=== PATIENT | female | born 1960 | race Caucasian/White ===

== ENCOUNTER 2019-02-19 11:22 | Inpatient (IN) | payer OTHER ==
[~2019-02-19] VITALS: Ht 157.5 cm; Wt 77.9 kg
[2019-02-19 12:11] LABS: Basophils # (auto) 0.1 uL; Basophils % (auto) 0.8 % (0.0-2.0); Eosinophils # (auto) 0.1 uL; Hematocrit 40.6 % (36.0-46.0); Hemoglobin 13.9 g/dL (12.2-16.2); Lymphocytes # (auto) 1.3 uL; Lymphocytes % (auto) 16.9 % (10.0-50.0); Mean Corpuscular Hemoglobin 29.8 pg (28.0-32.0); Mean Corpuscular Hgb Conc. 34.3 g/dL (32.0-36.0); Mean Corpuscular Volume 86.7 fL (80.0-100.0); Monocytes # (auto) 0.5 uL; Monocytes % (auto) 6.1 % (0.0-12.0); Neutrophils % (auto) 75.2 % (37.0-80.0); Platelet Count (auto) 144 10^3/uL (140-450); Red Blood Cells 4.68 10^6/uL (4.0-5.20); Red Cell Distribution Width 14.3 % (11.8-14.3)
[2019-02-19 12:41] LABS: Albumin 3.9 g/dL (3.4-5.0); BUN/Creatinine Ratio 24.2; Calcium 8.5 mg/dL (8.5-10.1); Potassium 3.8 mmol/L (3.5-5.1)
[2019-02-19 12:46] LABS: Bilirubin, Total 0.3 mg/dL (0.2-1.0); Total Protein 6.8 g/dL (6.4-8.2)
[2019-02-19 13:20] LABS: INR 0.97 (0.9-1.15); Partial Thromboplastin Time 26.7 sec (23.64-32.05)
[2019-02-19] MEDS ORDERED: NITROGLYCERIN 0.4 MG SL TAB SL PRN (14:30)
[2019-02-19] MEDS ORDERED: hydrALAZINE HCL 20 MG/ML VL IV PRN (14:30)
[2019-02-19] MEDS ORDERED: NITROGLYCERIN 0.4MG/HR TOPICAL PATCH TD ONE (14:30)
[2019-02-19] MEDS ORDERED: HYDROcodone-ACET 5/325MG TAB PO PRN (14:30)
[2019-02-19] MEDS ORDERED: ONDANSETRON HCL 4 MG/2 ML VIAL IV PRN (14:30)
[2019-02-19] MEDS ORDERED: ACETAMINOPHEN 500 MG TAB PO PRN (14:30)
--- NOTE | 2019-02-19 15:53 | NUR ---
Telemetry admit from ER ROBBIE GOETZ admitted to Telemetry unit after SBAR received. Patient oriented to SARAH LEWIS RN primary RN, unit, room, bed, and unit policies regarding patient care and visiting hours. Patient now on continuous telemetry monitoring, tele box # [id number] and telemetry reading on arrival to unit is sinus sae [id number]. Patient denies any chest pain or SOB at this time. Patient weighed by bedscale and encouraged to call if they need something. All questions and concerns addressed, patient verbalized understanding.
--- NOTE | 2019-02-19 16:07 | NUR ---
Paged Ramon Carranza Paged Ramon to inform him of critical troponin level 2.51. New orders in place. Paged Dr Prather as well per Tere's request.
--- NOTE | 2019-02-19 16:12 | NUR ---
MED REQ PATIENT TAKES HOMEOPATHIC DOSES OF PROGESTERONE, TESTOSTERONE AND ESTROGEN.
[2019-02-19] MEDS ORDERED: ENOXAPARIN SOD 80 MG/0.8ML SYRINGE SC ONE (16:15)
--- NOTE | 2019-02-19 16:30 | NUR ---
12 Lead EKG 12 Lead EKG performed and strips placed in chart per Tere's request. Ramon stated he will be up to read the strips. Verbalized understanding.
[2019-02-19 17:12] VITALS: BP 97/58
--- NOTE | 2019-02-19 18:03 | NUR ---
House Sup Aware of Transfer supervisor engines road and charge nurse made aware of transfer order to [facility]. states we have no beds available at this time. Will continue to monitor and wait for bed opening.
--- NOTE | 2019-02-19 19:19 | NUR ---
Closing Note Patient sitting up in bed, shows no signs of distress at this time. Bed in lowest locked position, side rails up x2 and call light within reach. Endorsed care to [facility] nurse Alanis.
--- NOTE | 2019-02-19 20:00 | NUR ---
RECEIVE IN BED WITH FAMILY AT BED SIDE DENIES ANY CHEST PAIN OR SOB IS AWARE HAT SHE WILL BE TRANSFERRED TO [facility] WHEN BED IS AVAILABLE.
[2019-02-19] MEDS: DOCUSATE SOD 100 MG CAP PO SCH (21:50)
[2019-02-19] MEDS: METOPROLOL TARTRATE 25 MG TAB PO SCH (21:50)
[2019-02-19] MEDS ORDERED: ATORVASTATIN 20 MG TAB PO SCH (22:00)
--- NOTE | 2019-02-19 22:00 | NUR ---
TROPONIN IS 7.04 CHIEF SPECIALIST LEED AND CHARGE NURSE IS AWAREPT S AWARE OF SAME DENIES ANY CHEST PAIN INSTRUCTED THAT SHE WILL BE NPO FOR HEART CATH AND IS AWAITING [facility] BED
[2019-02-19 22:01] VITALS: BP 101/53
[2019-02-19] MEDS ORDERED: ASPirin 81 mg TAB PO ONE (23:00)
[2019-02-20] VITALS (13 sets, daily range): BP systolic 85–123; BP diastolic 40–71
--- NOTE | 2019-02-20 | NUR ---
ISBEING MONITORED [facility] PT IS AWARE OF SAME BP 92/48 P 56 R 18 O2 SAT 96% RA NO DISTRESS
--- NOTE | 2019-02-20 05:04 | NUR ---
NPO MAINTAINED IS BEING MONITORED [facility] PT NO VOICED COMPLAINTS
[2019-02-20 05:25] LABS: Calcium 8.4 mg/dL (8.5-10.1); Potassium 3.8 mmol/L (3.5-5.1)
[2019-02-20 05:38] LABS: INR 0.98 (0.9-1.15); Partial Thromboplastin Time 30.2 sec (23.64-32.05)
--- NOTE | 2019-02-20 06:40 | NUR ---
HR 58 NPO MAINTAINED IS AWAITING HEART CATH AND FAMILY
--- NOTE | 2019-02-20 08:00 | NUR ---
OPENING NOTE Assumed care of patient, awake and alert. No S/S of distress/SOB or pain. Instructed on POC and to call for assist PRN, will continue to monitor for changes Q1hr and PRN.
--- NOTE | 2019-02-20 08:30 | NUR ---
Patient taken to [facility] laborer.
[2019-02-20] MEDS: LISINOPRIL 10 MG TAB PO SCH (10:00)
[2019-02-20] MEDS: NITROGLYCERIN 0.4MG/HR TOPICAL PATCH TD SCH (10:00)
[2019-02-20] MEDS: METOPROLOL TARTRATE 25 MG TAB PO SCH ×2 (10:00→21:44)
[2019-02-20] MEDS ORDERED: ASPirin 81 mg TAB PO SCH (10:00)
[2019-02-20] MEDS ORDERED: LIDOCAINE 2%HCL (LOCAL ANESTH.) INJ 20ML MDV ONE (10:18)
[2019-02-20] MEDS ORDERED: IOHEXOL 350 MG/ML 100ML IJ ONE ×2 (10:18→10:25)
[2019-02-20] MEDS ORDERED: fentaNYL CITRATE 100 MCG/2 ML VL ONE (10:24)
[2019-02-20] MEDS ORDERED: MIDAZOLAM HCL 1MG/1ML-2 ML VIAL ONE (10:24)
[2019-02-20] MEDS ORDERED: ANGIOMAX 250 MG VIAL IV ONE (10:24)
[2019-02-20] MEDS ORDERED: SODIUM CHL 0.9% 0 ML ONE (10:25)
[2019-02-20] MEDS ORDERED: VERAPAMIL 2.5MG/ML INJ 2ML VIAL IV ONE (10:27)
[2019-02-20] MEDS ORDERED: HEPARIN SODIUM (PORCINE) 5000 UNITS/ML 1ML VIAL ONE (11:08)
[2019-02-20 12:08] LABS: Cholesterol 158 mg/dL (< 200); HDL Cholesterol 43 mg/dL (40-59); LDL Cholesterol 102 mg/dL (< 100); Triglycerides 107 mg/dL (< 150)
--- NOTE | 2019-02-20 12:40 | NUR ---
Received pt back from laboratory supervisor, pt has a vacular band to rt wrist, removed 2 ml of air, no bleeding noticed, v/s 123/71, hr 59, O2 sat 99% at RA, no pain or distress noted or reported, will continue to monitor pt.
[2019-02-20] MEDS: DOCUSATE SOD 100 MG CAP PO SCH ×2 (12:49→21:44)
[2019-02-20] MEDS: ASPirin 81 mg TAB PO SCH (12:49)
--- NOTE | 2019-02-20 13:10 | NUR ---
Removed 2 ml of air of vascular band to rt wrist, no bleeding noticed, will continue to monitor pt.
--- NOTE | 2019-02-20 13:40 | NUR ---
Removed 2 ml of air of vascular band to rt wrist, no bleeding noticed, will continue to monitor pt.
[2019-02-20 13:53] LABS: Urine Bacteria NONE SEEN /hpf (None Seen); Urine Blood Negative /uL (Negative); Urine Specific Gravity 1.035 (1.001-1.035); Urine WBC <1 /hpf (0 - 5)
--- NOTE | 2019-02-20 14:10 | NUR ---
Removed 2 ml of air of vascular band to rt wrist, no bleeding noticed, will continue to monitor pt.
--- NOTE | 2019-02-20 14:40 | NUR ---
Removed 2 ml of air of vascular band to rt wrist, no bleeding noticed, v/s 98/60, hr 60, O2 sat 96%, will continue to monitor pt.
--- NOTE | 2019-02-20 15:40 | NUR ---
No bleeding noticed at rt wrist, no swelling or hematoma noticed, applied gauze and clear opsite dressing, will continue to monitor pt for bleeding.
--- NOTE | 2019-02-20 19:45 | NUR ---
Opening Shift Note Assumed care of patient, awake, alert and oriented x 4. No S/S of distress/SOB or pain. On room air and ambulatory. Bed in lowest locked position, side rails up x 2, call light within reach. Instructed on POC and to call for assist PRN, will continue to monitor for changes Q1hr and PRN.
--- NOTE | 2019-02-20 19:50 | NUR ---
INCISION SITE TO RIGHT WRIST NO SIGNS OF PAIN, BLEEDING OR HEMATOMA NOTED. NO C/O NUMBNESS FROM PROCEDURE. GAUZE AND TEGADERM DRESSING CDI.
[2019-02-20] MEDS ORDERED: ATORVASTATIN 20 MG TAB PO SCH (22:00)
[2019-02-21 04:54] VITALS: BP 98/62
--- NOTE | 2019-02-21 07:01 | NUR ---
ENDORSED CARE TO DAYSHIBARNEY LIMA.
--- NOTE | 2019-02-21 08:21 | NUR ---
DR. GREEN AT BEDSIDE PER DR. GREEN PT CAN GO HOME.
[2019-02-21 09:00] VITALS: BP 105/52
[2019-02-21] MEDS: DOCUSATE SOD 100 MG CAP PO SCH (09:28)
[2019-02-21] MEDS: METOPROLOL TARTRATE 25 MG TAB PO SCH (09:28)
[2019-02-21] MEDS: ASPirin 81 mg TAB PO SCH (09:28)
[2019-02-21] MEDS: NITROGLYCERIN 0.4MG/HR TOPICAL PATCH TD SCH (09:29)
[2019-02-21] MEDS: LISINOPRIL 10 MG TAB PO SCH (09:29)
[2019-02-21 09:59] VITALS: BP 105/52
[2019-02-21] MEDS ORDERED: CLOPIDOGREL BISULFATE 75 MG TAB PO SCH (10:00)
--- NOTE | 2019-02-21 10:30 | NUR ---
Discharge instructions given as ordered. Encourage to follow up with DR. VOGEL IN 1 WEEK, PT WILL MAKE HER OWN APPOINTMENT PCP IS IN [place], INSTRUCTED TO FOLLOW UP WITH [facility] ANALYST IN 2 WEEKS. All questions and concerns addressed. Patient verbalized understanding. Medication reconciliation form completed and copy given to patient. IV removed with catheter intact, pressure dressing applied, hughes catheter removed. Telemetry unit returned to ICU. Patient taken to vehicle via wheelchair with all personal belongings, accompanied by staff and family member. No distress noted at time of departure.
== END 2019-02-21 10:30 | disposition home or self-care (01) | DRG 282 ==
LOC: ER 11:27 → TELE 11:28 → TELE-CENTR 15:58
PROVIDERS: ADMIT Nurse Practitioner Acute Care; ATTEND Family Medicine
PROC: 4A023N7 Measurement of Cardiac Sampling and Pressure, Left Heart, Percutaneous Approach (ICD-10-PCS; principal; 2019-02-19)
PROC: B2111ZZ Fluoroscopy of Multiple Coronary Arteries using Low Osmolar Contrast (ICD-10-PCS; 2019-02-19)
PROC: B2151ZZ Fluoroscopy of Left Heart using Low Osmolar Contrast (ICD-10-PCS; 2019-02-19)
DX: I21.4 Non-ST elevation (NSTEMI) myocardial infarction (principal); E78.00 Pure hypercholesterolemia, unspecified; F17.210 Nicotine dependence, cigarettes, uncomplicated; I11.9 Hypertensive heart disease without heart failure; I25.10 Atherosclerotic heart disease of native coronary artery without angina pectoris; Z79.02 Long term (current) use of antithrombotics/antiplatelets; Z82.49 Family history of ischemic heart disease and other diseases of the circulatory system; Z90.710 Acquired absence of both cervix and uterus; Z83.3 Family history of diabetes mellitus; Z98.84 Bariatric surgery status; Z71.6 Tobacco abuse counseling
CPT/HCPCS: 36415; 71045; 80048; 80053; 80061; 81001; 83735; 84443; 84484; 85025; 85379; 85610; 85730; 86141; 93005; 93306; 94761; 96372; 99152; G0378; J2250